=== PATIENT | female | born 1985 | race African-American/Black ===

== ENCOUNTER 2017-03-09 11:58 | Emergency (ER) | payer MEDICAID ==
[~2017-03-09] VITALS: Ht 167.6 cm; Wt 108.5 kg
[2017-03-09 13:24] LABS: CLARITY URINE CLEAR (CLEAR); COLOR URINE DARK YELLOW (YELLOW); GLUCOSE URINE NEGATIVE (NEGATIVE); KETONES URINE TRACE (NEGATIVE); LEUKOCYTE ESTERASE URINE NEGATIVE (NEGATIVE); NITRITE URINE NEGATIVE (NEGATIVE); OCCULT BLOOD URINE NEGATIVE (NEGATIVE); PH URINE 5.5 (4.5-8.0); PROTEIN URINE TRACE (NEGATIVE); SPECIFIC GRAVITY URINE 1.025 (1.005-1.030)
[2017-03-09 15:30] VITALS: BP 141/88
[2017-03-09] MEDS ORDERED: KETOROLAC 60MG/2ML VIAL IM ONE (15:30)
== END 2017-03-09 16:19 | disposition home or self-care (01) ==
LOC: ER 13:11
DX: M54.41 Lumbago with sciatica, right side (principal); Z72.0 Tobacco use
CPT/HCPCS: 81001; 81025; 96372; 99283; J1885; Z7610